=== PATIENT | male | born 1980 | race Caucasian/White ===

== ENCOUNTER 2019-11-20 03:35 | Emergency (ER) | payer OTHER | END 2019-11-20 04:15 | disposition left against medical advice (07) | LOC: ER 03:35 | DX: Z53.21 Procedure and treatment not carried out due to patient leaving prior to being seen by health care provider (principal) ==

== ENCOUNTER 2021-01-17 19:37 | Emergency (ER) | payer OTHER ==
[~2021-01-17] VITALS: Ht 175.3 cm; Wt 83.9 kg
== END 2021-01-17 22:22 | disposition other institution (70) ==
LOC: ER 19:37
DX: S61.211A Laceration without foreign body of left index finger without damage to nail, initial encounter (principal); Z88.5 Allergy status to narcotic agent; Z88.0 Allergy status to penicillin; W45.8XXA Other foreign body or object entering through skin, initial encounter
CPT/HCPCS: 12001; 99282-25

== ENCOUNTER 2024-10-08 13:16 | Emergency (ER) | payer OTHER ==
[~2024-10-08] VITALS: Ht 180.3 cm; Wt 90.7 kg
[2024-10-08 14:26] VITALS: BP 162/102
[2024-10-08 16:15] LABS: U Amphetamine Screen DETECTED; U Barbituate Screen Not Detected; U Benzodiazapine Screen Not Detected; U Buprenorphine Screen Not Detected; U Cannabinoids Screen Not Detected; U Cocaine Screen Not Detected; U Methadone Screen Not Detected; U Methamphetamine Screen DETECTED; U Opiates Screen Not Detected; U Oxycodone Screen Not Detected; U Phencyclidine Screen Not Detected
== END 2024-10-08 16:49 | disposition home or self-care (01) ==
LOC: ER 13:16
PROVIDERS: Student in an Organized Health Care Education/Training Program
DX: F15.129 Other stimulant abuse with intoxication, unspecified (principal); Z88.6 Allergy status to analgesic agent; Z88.5 Allergy status to narcotic agent; Z88.0 Allergy status to penicillin
CPT/HCPCS: 73100; 73110; 99283-25

== ENCOUNTER 2024-11-04 21:49 | Emergency (ER) | payer OTHER ==
[~2024-11-04] VITALS: Ht 180.3 cm; Wt 81.7 kg
[2024-11-04 22:03] VITALS: BP 161/107
[2024-11-04 23:23] LABS: U Amphetamine Screen DETECTED; U Barbituate Screen Not Detected; U Benzodiazapine Screen Not Detected; U Buprenorphine Screen Not Detected; U Cannabinoids Screen Not Detected; U Cocaine Screen Not Detected; U Methadone Screen Not Detected; U Methamphetamine Screen DETECTED; U Opiates Screen Not Detected; U Oxycodone Screen Not Detected; U Phencyclidine Screen Not Detected
== END 2024-11-04 23:41 | disposition home or self-care (01) ==
LOC: ER 21:49
PROVIDERS: Student in an Organized Health Care Education/Training Program
DX: F15.10 Other stimulant abuse, uncomplicated (principal); F11.90 Opioid use, unspecified, uncomplicated; Z88.8 Allergy status to other drugs, medicaments and biological substances; Z88.5 Allergy status to narcotic agent; Z88.0 Allergy status to penicillin
CPT/HCPCS: 99283

== ENCOUNTER 2024-12-13 14:34 | Emergency (ER) | payer OTHER ==
[~2024-12-13] VITALS: Ht 180.3 cm; Wt 95.2 kg
[2024-12-13] MEDS ORDERED: Ketorolac Tromethamine 15mg Vial IV ONE (15:30)
[2024-12-13 15:31] LABS: BASOPHILS PERCENT AUTO 1 % (0-2); EOSINOPHILS ABSOLUTE AUTO 0.21 K/mm3 (0.00-0.68); EOSINOPHILS PERCENT AUTO 2 % (0-6); Hematocrit 49.7 % (37.0-53.0); Hemoglobin 17.6 g/dL (13.5-17.5); IMMATURE GRAN ABSOLUTE AUTO 0.11 K/mm3 (0.00-0.10); IMMATURE GRAN PERCENT AUTO 1 % (0-1); LYMPHOCYTES ABSOLUTE AUTO 3.15 K/mm3 (0.84-5.20); LYMPHOCYTES PERCENT AUTO 25 % (21-46); MONOCYTES ABSOLUTE AUTO 0.81 K/mm3 (0.16-1.47); MONOCYTES PERCENT AUTO 7 % (4-13); Mean Corpuscular HGB 30.4 pg (26.0-34.0); Mean Corpuscular HGB Conc 35.4 g/dL (31.5-36.5); Mean Corpuscular Volume 86 fL (80-100); NEUTROPHILS ABSOLUTE AUTO 8.06 K/mm3 (1.96-9.15); NEUTROPHILS PERCENT AUTO 65 % (41-73); Platelet Count 218 K/mm3 (150-400); RDW Coefficient Variation 13.2 % (11.7-14.2); RDW Standard Deviation 40.8 fL (35.1-46.3); Red Blood Cell Count 5.79 M/mm3 (4.30-5.90); White Blood Cell Count 12.44 K/mm3 (4.00-11.30)
[2024-12-13] MEDS ORDERED: OxyCODONE HCL 5 MG TAB PO ONE ×2 (15:45→17:30)
[2024-12-13 15:51] LABS: Albumin, Blood 3.8 g/dL (3.4-5.0); Albumin/Globulin Ratio 1.2 (0.8-1.8); Bilirubin, Total 0.5 mg/dL (0.1-1.0); Bun/Creatinine Ratio 15.5 (12.0-20.0); Calcium, Blood 8.8 mg/dL (8.5-10.1); Creatinine, Blood 0.84 mg/dL (0.60-1.20); Globulin, Blood 3.1 g/dL (2.2-4.0); Potassium, Blood 3.5 mmol/L (3.5-5.5); Total Protein, Blood 6.9 g/dL (6.4-8.2)
[2024-12-13] MEDS ORDERED: ALBU90OI INH (16:05)
[2024-12-13] MEDS ORDERED: PRED20 PO (16:05)
[2024-12-13] MEDS ORDERED: VALA500 PO (17:28)
[2024-12-13 17:50] VITALS: BP 128/79
== END 2024-12-13 17:50 | disposition home or self-care (01) ==
LOC: ER 14:34
PROVIDERS: Emergency Medicine
DX: M25.512 Pain in left shoulder (principal); Z88.6 Allergy status to analgesic agent; Z88.5 Allergy status to narcotic agent; Z88.0 Allergy status to penicillin; Z79.52 Long term (current) use of systemic steroids; Z79.899 Other long term (current) drug therapy
CPT/HCPCS: 71046; 73030; 80053; 84484; 85025; 85379; 93005; 93010; 96374; 99284-25; A9270; J1885

== ENCOUNTER 2024-12-27 21:41 | Emergency (ER) | payer OTHER ==
[~2024-12-27] VITALS: Ht 180.3 cm; Wt 86.2 kg
[~2024-12-27 21:41] MED LIST: ALBU90OI INH; PRED20 PO; VALA500 PO
[2024-12-27 21:48] VITALS: BP 148/83
[2024-12-27] MEDS ORDERED: Voltaren100 GM TOP (23:05)
[2024-12-27] MEDS ORDERED: LIDO700A20 TOP (23:05)
[2024-12-27] MEDS ORDERED: IBUP800 PO (23:05)
== END 2024-12-27 23:05 | disposition home or self-care (01) ==
LOC: ER 21:41
DX: M75.102 Unspecified rotator cuff tear or rupture of left shoulder, not specified as traumatic (principal); Z88.6 Allergy status to analgesic agent; Z88.5 Allergy status to narcotic agent; Z88.0 Allergy status to penicillin
CPT/HCPCS: 99283

== ENCOUNTER 2025-06-27 14:32 | Emergency (ER) | payer OTHER ==
[~2025-06-27] VITALS: Ht 180.3 cm; Wt 99.8 kg
[~2025-06-27 14:32] MED LIST changes: +IBUP800 PO; +LIDO700A20 TOP; +Voltaren100 GM TOP
[2025-06-27] MEDS ORDERED: EPIPEN0.3 MG/0.3 IM (15:33)
[2025-06-27] MEDS ORDERED: BENADRYL25 M1 PO (15:33)
[2025-06-27 15:58] VITALS: BP 130/80
== END 2025-06-27 15:50 | disposition home or self-care (01) ==
LOC: ER 14:32
DX: T63.441A Toxic effect of venom of bees, accidental (unintentional), initial encounter (principal); L53.0 Toxic erythema; R22.31 Localized swelling, mass and lump, right upper limb
CPT/HCPCS: 99282